=== PATIENT | male | born 1960 | race Caucasian/White ===

== ENCOUNTER → 2025-05-24 12:35 | Outpatient (REF) | payer BC, SELFPAY | LOC: HWRAD 12:35 | PROVIDERS: ATTENDING PHYSICIAN Family Medicine | DX: J12.9 Viral pneumonia, unspecified (principal) | CPT/HCPCS: 71046 ==

== ENCOUNTER → 2025-06-08 13:25 | Outpatient (REF) | payer OTHER, SELFPAY | LOC: HWRAD 13:25 | PROVIDERS: ATTENDING PHYSICIAN Family Medicine | DX: J85.1 Abscess of lung with pneumonia (principal) | CPT/HCPCS: 71250 ==